=== PATIENT | male | born 1950 | race Caucasian/White ===

== ENCOUNTER 2019-03-12 07:12 | Emergency (ER) | payer MEDICARE ==
[2019-03-12] MEDS ORDERED: HYDROcodone/Acetaminophen 10/325 mg Tablet ONE (07:56)
[2019-03-12] MEDS ORDERED: Ibuprofen 800 MG TAB ONE (07:56)
--- NOTE | 2019-03-12 10:56 | RAD ---
LEFT WRIST 3 VIEWS: Date: 03/12/19 There is a fracture through the mid portion of the scaphoid. The carpal relationships are normal. No other fractures detected. A small irregularity along the medial aspect of the triquetrum is probably just a normal ridge. IMPRESSION: Nondisplaced scaphoid fracture. FINDING DISCUSSED WITH DR KHAN 03/12/2019 . POS: HOME
== END 2019-03-12 08:25 | disposition home or self-care (01) ==
LOC: BURERS 07:12
DX: S63.502A Unspecified sprain of left wrist, initial encounter (principal); W11.XXXA Fall on and from ladder, initial encounter

== ENCOUNTER 2019-07-05 15:22 | Emergency (ER) | payer MEDICARE ==
[2019-07-05] MEDS ORDERED: Adacel (T-DAP) 0.5 ML SYRINGE ONE (15:41)
== END 2019-07-05 16:18 | disposition short-term general hospital (02) ==
LOC: BURERS 15:22
DX: S01.111A Laceration without foreign body of right eyelid and periocular area, initial encounter (principal); S05.01XA Injury of conjunctiva and corneal abrasion without foreign body, right eye, initial encounter; E78.5 Hyperlipidemia, unspecified; I11.0 Hypertensive heart disease with heart failure; I50.9 Heart failure, unspecified; Z79.899 Other long term (current) drug therapy; Z79.84 Long term (current) use of oral hypoglycemic drugs; Z79.82 Long term (current) use of aspirin; X50.9XXA Other and unspecified overexertion or strenuous movements or postures, initial encounter
CPT/HCPCS: 90471; 90715

== ENCOUNTER 2021-12-25 15:14 | Emergency (ER) | payer MEDICARE ==
[2021-12-25] MEDS ORDERED: HYDROcodone/Acetaminophen 5/325 mg Tablet ONE (15:44)
[2021-12-25] MEDS ORDERED: predniSONE 20 MG TAB ONE (15:44)
== END 2021-12-25 16:53 | disposition home or self-care (01) ==
LOC: BURERS 15:14
DX: S29.011A Strain of muscle and tendon of front wall of thorax, initial encounter (principal); I44.0 Atrioventricular block, first degree; I11.0 Hypertensive heart disease with heart failure; I50.9 Heart failure, unspecified; E11.9 Type 2 diabetes mellitus without complications; J84.10 Pulmonary fibrosis, unspecified; F17.210 Nicotine dependence, cigarettes, uncomplicated; X50.0XXA Overexertion from strenuous movement or load, initial encounter
CPT/HCPCS: 71250; 93005; J7512